=== PATIENT | male | born 1955 | race Caucasian/White ===

== ENCOUNTER 2018-03-26 05:30 | Day surgery (SDC) | payer BC ==
[2018-03-26] MEDS ORDERED: SOD CHLORIDE 0.9% 1,000 ML IV (06:00)
[2018-03-26] MEDS ORDERED: CEFAZOLIN 2 GM/50 ML (PMX) 50 ML IVPB (06:00)
[2018-03-26] MEDS ORDERED: MIDAZOLAM 1 MG/ML 2 ML INJ (07:46)
[2018-03-26] MEDS ORDERED: CEFAZOLIN 1 GM INJ (07:46)
[2018-03-26] MEDS ORDERED: ONDANSETRON 4 MG INJ (07:47)
[2018-03-26] MEDS ORDERED: KETOROLAC 30 MG INJ (07:49)
[2018-03-26] MEDS ORDERED: FENTAnyl 50 MCG/ML VIAL (07:51)
[2018-03-26] MEDS: BUPIVACAINE 0.5% (SDV) 30 ML INJ (07:59)
[2018-03-26] MEDS: LIDOCAINE 2% (MDV) 20 ML INJ (07:59)
[2018-03-26] MEDS ORDERED: HYDROCODONE/APAP (5/325) TAB PO (08:30)
== END 2018-03-26 09:17 | disposition home or self-care (01) ==
LOC: SDS 05:30
DX: L91.0 Hypertrophic scar (principal); L72.0 Epidermal cyst; I10 Essential (primary) hypertension
CPT/HCPCS: 14001; 88307